=== PATIENT | male | born 1975 ===

== ENCOUNTER 2019-09-30 19:44 | Outpatient (REF) | payer MEDICAID, SELFPAY ==
[2019-09-30 20:45] LABS: HGB 15.2 g/dL (13.5-17.5); Mean Corp. HGB Concentration 35.3 g/dL (32.0-36.0); Mean Corpuscular Hemoglobin 31.2 pg (27.0-33.0); Mean Corpuscular Volume 88.3 fL (80-95); Mean Platelet Volume 9.3 fL (8.0-11.0); Platelet Count 291 x1000/uL (130-400); RBC 4.87 m/cumm (4.50-6.00); RBC Distribution Width 12.2 % (11.8-14.1); White Blood Cell Count 7.27 k/cumm (4.4-10.8)
[2019-09-30 21:12] LABS: ALT 37 U/L (16-63); AST 23 U/L (15-37); Albumin 4.1 g/dL (3.4-5.0); Alkaline Phosphatase 78 U/L (46-116); Anion Gap 9.2 mmol/L (3-11); BUN 16 mg/dL (7-18); Bilirubin, Total 0.4 mg/dL (0.2-1.0); CO2 26.8 mmol/L (21.0-32.0); CREATININE 0.95 mg/dL (0.70-1.30); Calculated LDL 134 mg/dL (<100); Chloride 106 mmol/L (98-107); Cholesterol 225 mg/dL (<200); Glucose 85 mg/dL (74-106); HDL Cholesterol 54 mg/dL (40-60); Sodium 142 mmol/L (136-145); Total Protein 7.2 g/dL (6.4-8.2); Triglyceride 188 mg/dL (<150)
[2019-09-30 21:18] LABS: Vitamin D 25 Total 12.3 ng/ml (30-100)
== END 2019-09-30 20:04 ==
LOC: NCHCN 19:44
PROVIDERS: Visit Provider Nurse Practitioner Family
DX: M79.10 Myalgia, unspecified site (principal); R53.83 Other fatigue; Z13.220 Encounter for screening for lipoid disorders; Z00.00 Encounter for general adult medical examination without abnormal findings
CPT/HCPCS: 80053; 80061; 82306; 85027; 84443

== ENCOUNTER 2020-02-07 19:09 | Outpatient (REF) | payer MEDICAID, SELFPAY ==
[2020-02-13 11:31] LABS: SARS-CoV-2 RNA Undetected (Undetected); SARS-CoV-2 Specimen Source Nasopharynx
== END 2020-02-07 19:29 ==
LOC: NCHCN 19:09
PROVIDERS: PCP Nurse Practitioner Family; Visit Provider Nurse Practitioner Family
DX: R50.9 Fever, unspecified (principal)
CPT/HCPCS: U0003

== ENCOUNTER 2020-03-29 20:55 | Outpatient (REF) | payer MEDICAID, SELFPAY ==
[2020-03-29 21:13] LABS: ALT 44 U/L (16-63); AST 26 U/L (15-37); Alkaline Phosphatase 84 U/L (46-116); Anion Gap 15.4 mmol/L (3-11); BUN 25 mg/dL (7-18); Bilirubin, Total 0.5 mg/dL (0.2-1.0); CO2 20.6 mmol/L (21.0-32.0); CREATININE 1.56 mg/dL (0.70-1.30); Calcium 10.1 mg/dL (8.5-10.1); Chloride 102 mmol/L (98-107); Estimated GFR 48.37 (mL/min/1.73m2); Glucose 107 mg/dL (74-106); Potassium 4.3 mmol/L (3.5-5.1); Sodium 138 mmol/L (136-145); Total Protein 8.4 g/dL (6.4-8.2)
[2020-03-29 21:14] LABS: Abs Immature Grans 0.03 10^3/uL (0.0-0.06); Absolute Basophil Count 0.02 10^3/uL (0.0-0.2); Absolute Eosinophil Count 0.03 10^3/uL (0.0-0.7); Absolute Monocyte Count 0.47 10^3/uL (0.1-0.8); Absolute Neutrophil Count 7.34 10^3/uL (1.2-6.7); Basophils % 0.2; Eosinophils % 0.3; HCT 46.3 % (40.0-50.0); HGB 16.2 g/dL (13.5-17.5); Immature Grans % 0.3; Lymphocytes % 24.1; MCH 31.8 pg (27.0-33.0); MCV 90.8 fL (80-95); MPV 9.9 fL (8.0-11.0); Monocytes % 4.5; Neutrophils % 70.6; Nucleated RBC 0 %; Platelet Count 360 10^3/uL (130-400); RDW 12.2 % (11.8-14.1); RDW-SD 40.3 fL; WBC 10.39 10^3/uL (4.4-10.8)
[2020-03-30 07:06] LABS: Vitamin D 25 Total 25.3 ng/ml (30-100)
[2020-03-31 10:14] LABS: Lyme Ab w Rflx to Lyme Confirm Negative (Negative)
[2020-04-01 00:50] LABS: Anaplasma phagocytophilum Negative (Negative); B. miyamotoi PCR Negative (Negative); Babesia divergens/MO-1 Negative (Negative); Babesia duncani Negative (Negative); Babesia microti Negative (Negative); Ehrlichia chaffeensis Negative (Negative); Ehrlichia ewingii/canis Negative (Negative); Ehrlichia muris eauclairensis Negative (Negative)
== END 2020-03-29 21:15 ==
LOC: NCHCN 20:55
PROVIDERS: PCP Nurse Practitioner Family; Visit Provider Nurse Practitioner Family
DX: R53.83 Other fatigue (principal); E78.5 Hyperlipidemia, unspecified; E55.9 Vitamin D deficiency, unspecified
CPT/HCPCS: 80053; 82306; 87798; 85025; 86618

== ENCOUNTER 2020-04-17 15:24 | Outpatient (REF) | payer MEDICAID, SELFPAY ==
[2020-04-17 21:37] LABS: ALT 36 U/L (16-63); AST 17 U/L (15-37); Alkaline Phosphatase 70 U/L (46-116); Anion Gap 9.1 mmol/L (3-11); BUN 16 mg/dL (7-18); Bilirubin, Total 0.2 mg/dL (0.2-1.0); CO2 25.9 mmol/L (21.0-32.0); CREATININE 0.93 mg/dL (0.70-1.30); Calcium 8.7 mg/dL (8.5-10.1); Chloride 105 mmol/L (98-107); Glucose 95 mg/dL (74-106); Potassium 3.9 mmol/L (3.5-5.1); Sodium 140 mmol/L (136-145)
[2020-04-18 00:10] LABS: Total Protein 7.1 g/dL (6.4-8.2)
== END 2020-04-17 15:44 ==
LOC: NCHCN 15:24
PROVIDERS: PCP Nurse Practitioner Family; Visit Provider Nurse Practitioner Family
DX: R94.4 Abnormal results of kidney function studies (principal)
CPT/HCPCS: 80053